=== PATIENT | female | born 1990 ===

== ENCOUNTER 2019-05-19 17:30 | Inpatient (IN) | payer OTHER ==
[~2019-05-19] VITALS: Ht 170 cm; Wt 80.3 kg
[2019-05-19] MEDS ORDERED: RINGERS SOLUTION,LACTATED 1,000 ML IV PRN (19:08)
[2019-05-19] MEDS ORDERED: OXYTOCIN 30 UNITS/LACT RINGERS 500 ML IV ONE (19:08)
[2019-05-19 19:10] VITALS: BP 123/84
[2019-05-19] MEDS ORDERED: METOCLOPRAMIDE HCL 5 MG/ML 2 ML VIAL IVP PRN (19:15)
[2019-05-19] MEDS ORDERED: METHYLERGONOVINE MALEATE 0.2 MG/ML VIAL IM PRN (19:15)
[2019-05-19] MEDS ORDERED: CITRIC ACID/SODIUM CITRATE 30 ML SOLUTION UDCUP PO PRN (19:15)
[2019-05-19] MEDS ORDERED: RINGERS SOLUTION,LACTATED 1,000 ML IV ONE (19:44)
[2019-05-19] MEDS: RINGERS SOLUTION,LACTATED 1,000 ML IV SCH (20:00)
[2019-05-19] MEDS ORDERED: OXYGEN THERAPY IH SCH (20:00)
[2019-05-19 20:15] LABS: BASOPHILS % (AUTO) 0.2 % (0.0-2.0); EOSINOPHILS % (AUTO) 1.3 % (1.0-6.0); HEMATOCRIT 32.3 % (36-46); HEMOGLOBIN 10.7 g/dL (12.0-16.0); LYMPHOCYTES # (AUTO) 1.7 K/uL (1.0-4.8); LYMPHOCYTES % (AUTO) 22.1 % (22.0-44.0); MEAN CORPUSCULAR HEMOGLOBIN 26.1 pg (26.0-34.0); MEAN CORPUSCULAR HGB CONC 33.3 G/dL (31.0-37.0); MEAN CORPUSCULAR VOLUME 79 fL (80-100); MONOCYTES # (AUTO) 0.5 K/uL (0.1-1.0); MONOCYTES % (AUTO) 6.7 % (2.0-9.0); NEUTROPHILS # (AUTO) 5.3 K/uL (1.8-7.7); NEUTROPHILS % (AUTO) 69.7 % (40.0-70.0); PLATELET COUNT (AUTO) 214 K/uL (150-450); RED BLOOD CELL COUNT(AUTO) 4.11 MIL/uL (4.00-5.20); RED CELL DISTRIBUTION WIDTH 16.6 % (11.5-14.5)
[2019-05-19] MEDS ORDERED: DINOPROSTONE 10 MG VAGINAL SUPPOSITORY VG ONE (21:00)
[2019-05-19] MEDS: ACETAMINOPHEN 325 MG TABLET PO PRN (21:37)
[2019-05-19] MEDS ORDERED: FOLI0.4T14 PO (22:07)
[2019-05-19] MEDS ORDERED: ACYC400T PO (22:07)
[2019-05-19] MEDS ORDERED: PREN1TAB80 PO (22:07)
[2019-05-19] MEDS ORDERED: [UNRECOGNIZED DRUG - OTHER] PO (22:07)
[2019-05-19] MEDS ORDERED: FERR134T2 PO (22:07)
[2019-05-20] MEDS ORDERED: RANITIDINE HCL 150 MG TABLET PO ONE (00:45)
[2019-05-20] MEDS ORDERED: INFLUENZA VIRUS VACCINE QVS 2019-20 (3YR+)/PF 60 MCG/0.5 ML SYRINGE IM ONE (03:30)
[2019-05-20] MEDS: RINGERS SOLUTION,LACTATED 1,000 ML IV SCH ×3 (03:47→22:02)
[2019-05-20] MEDS: FentaNYL CITRATE-PF 100 MCG/2 ML VIAL IVP PRN ×5 (04:50→11:05)
[2019-05-20] MEDS ORDERED: ONDANSETRON HCL 4 MG/2 ML VIAL ONE (08:52)
[2019-05-20] MEDS ORDERED: -PHARMACY NOTE- MISC ONE (09:00)
[2019-05-20] MEDS ORDERED: FentaNYL CITRATE-PF 100 MCG/2 ML VIAL IVP PRN (09:15)
[2019-05-20] MEDS: ONDANSETRON HCL 4 MG/2 ML VIAL IVP PRN ×2 (09:17→13:21)
[2019-05-20] MEDS ORDERED: FERROUS SULFATE 325 MG EC TABLET PO SCH (12:00)
[2019-05-20] MEDS: BUTORPHANOL TARTRATE 2 MG/ML VIAL IVP PRN ×2 (14:29→17:04)
[2019-05-20] MEDS ORDERED: MISOPROSTOL 25 MCG TABLET VG SCH (15:30)
[2019-05-20] MEDS ORDERED: MISOPROSTOL 50 MCG TABLET PO SCH (15:30)
[2019-05-20] MEDS ORDERED: ROPIVACAINE HCL/PF 0.2% 100 ML ED ONE (19:01)
[2019-05-20] MEDS ORDERED: ROPIVACAINE HCL/PF 0.2% 100 ML ED PRN (19:31)
[2019-05-20] MEDS ORDERED: OXYTOCIN 30 UNITS/LACT RINGERS 500 ML IV ONE (19:32)
[2019-05-20] MEDS ORDERED: AMPICILLIN SODIUM 2 GM/NS 100 ML IV ONE (19:45)
[2019-05-20] MEDS ORDERED: DiphenhydrAMINE HCL 50 MG/ML VIAL IVP PRN (19:45)
[2019-05-20] MEDS ORDERED: ONDANSETRON HCL 4 MG/2 ML VIAL IVP PRN (19:45)
[2019-05-20] MEDS ORDERED: NALBUPHINE HCL 10 MG/ML VIAL IVP PRN (19:45)
[2019-05-20] MEDS ORDERED: OXYTOCIN 20 UNITS/LACT RINGERS 1,000 ML IV SCH (23:43)
[2019-05-20] MEDS ORDERED: AMPICILLIN SODIUM 1 GM/NS 50 ML IV SCH (23:45)
[2019-05-20] MEDS ORDERED: BENZOCAINE 20%/MENTHOL 56 GM SPRAY CANISTER TP PRN (23:45)
[2019-05-20] MEDS ORDERED: ACETAMINOPHEN/CODEINE 300-30 MG TABLET PO PRN (23:45)
[2019-05-20] MEDS ORDERED: GLYCERIN/WITCH HAZEL LEAF 40 PADS JAR TP PRN (23:45)
[2019-05-20] MEDS ORDERED: SENNA/DOCUSATE SODIUM 8.6-50 MG TABLET PO PRN (23:45)
[2019-05-20] MEDS ORDERED: LANOLIN 7 GM OINTMENT TP PRN (23:45)
[2019-05-20] MEDS ORDERED: MEASLES/MUMPS/RUBELLA VACCINE, LIVE 0.5 ML/VIAL SQ ONE (23:45)
[2019-05-20] MEDS: ACETAMINOPHEN 325 MG TABLET PO PRN (23:51)
[2019-05-21] MEDS ORDERED: CALCIUM CARBONATE 500 MG CHEWABLE TABLET CHEW ONE (01:00)
[2019-05-21 06:06] LABS: BASOPHILS % (AUTO) 0.4 % (0.0-2.0); EOSINOPHILS % (AUTO) 0.4 % (1.0-6.0); HEMATOCRIT 31.3 % (36-46); HEMOGLOBIN 10.6 g/dL (12.0-16.0); LYMPHOCYTES # (AUTO) 1.6 K/uL (1.0-4.8); LYMPHOCYTES % (AUTO) 12.5 % (22.0-44.0); MEAN CORPUSCULAR HEMOGLOBIN 26.6 pg (26.0-34.0); MEAN CORPUSCULAR HGB CONC 33.8 G/dL (31.0-37.0); MEAN CORPUSCULAR VOLUME 79 fL (80-100); MONOCYTES % (AUTO) 7.7 % (2.0-9.0); NEUTROPHILS # (AUTO) 10.4 K/uL (1.8-7.7); PLATELET COUNT (AUTO)-OB 182 K/uL (150-450); RED BLOOD CELL COUNT(AUTO) 3.98 MIL/uL (4.00-5.20); RED CELL DISTRIBUTION WIDTH 16.6 % (11.5-14.5)
[2019-05-21] MEDS: IBUPROFEN 600 MG TABLET PO PRN ×3 (06:20→23:22)
[2019-05-21] MEDS: MAGNESIUM HYDROXIDE SUSPENSION 30 ML UDCUP PO PRN ×2 (09:06→23:22)
[2019-05-22] MEDS: IBUPROFEN 600 MG TABLET PO PRN (10:03)
[2019-05-22] MEDS ORDERED: IBUP-2071 PO (11:22)
[2019-05-22] MEDS ORDERED: DOCU-275 PO (11:23)
[2019-05-22] MEDS ORDERED: FERR-89 PO (11:24)
== END 2019-05-22 13:30 | disposition home or self-care (01) | DRG 807 ==
LOC: 4S 17:30 → OBSVTOIN 17:30 → UNDOADMOB 19:50 → 4S 19:50
PROVIDERS: ADMIT Obstetrics & Gynecology; ATTEND Obstetrics & Gynecology
PROC: 10E0XZZ Delivery of Products of Conception, External Approach (ICD-10-PCS; principal; 2019-05-20)
PROC: 0KQM0ZZ Repair Perineum Muscle, Open Approach (ICD-10-PCS; 2019-05-20)
PROC: 3E0R3BZ Introduction of Anesthetic Agent into Spinal Canal, Percutaneous Approach (ICD-10-PCS; 2019-05-20)
PROC: 00HU33Z Insertion of Infusion Device into Spinal Canal, Percutaneous Approach (ICD-10-PCS; 2019-05-20)
PROC: 3E02340 Introduction of Influenza Vaccine into Muscle, Percutaneous Approach (ICD-10-PCS; 2019-05-20)
DX: O76 Abnormality in fetal heart rate and rhythm complicating labor and delivery (principal); Z37.0 Single live birth; Z3A.39 39 weeks gestation of pregnancy; O70.1 Second degree perineal laceration during delivery; Z23 Encounter for immunization
CPT/HCPCS: 76815; 86850; 86900; 86901; 90686; J0290; J0595; J2405; J2590; J2795; J3010; J7120